=== PATIENT | male | born 1940 | race Caucasian/White ===

== ENCOUNTER 2018-03-12 15:55 | Inpatient (IN) | payer MEDICARE, BC ==
[~2018-03-12] VITALS: Ht 195.6 cm; Wt 200.0 kg
[~2018-03-12 15:55] MED LIST: CALCIUM CARBON500 M3 PO; CO Q10100 MG PO; COUMADIN 10MG T10 M1 PO; COUMADIN 5 MG TA5 M1 PO; COUMADIN7.5 MG PO; DEPO-TESTO200 MG/1 M IM; DIGOXIN; FIRST-LANSO3 MG/1 ML SUBQ; FOLIC ACID 40400 MCG PO; FOLIC ACID XTR0.8 MG PO; FOLIC ACID0.8 MG PO; FUROSEMIDE 80 M80 M1 PO; HUMALOG100 UNIT/1; HUMALOG100 UNIT/1 SUBQ; K-DUR 20 MEQ T20 MEQ PO; KEFLEX500 MG PO; KLOR-CON 10 ER10 MEQ PO; LANOXIN 0.120.125 M3 PO; LANOXIN 0.250.25 MG PO; LANTUS SUBQ; LANTUSSOLASTAR SUBQ; LASIX 40 MG TAB40 M1 PO; LIPITOR40 MG PO; LOPRESSOR; LOPRESSOR 50 MG50 M1 PO; MECLIZINE HCL25 M1 PO; METANX CAPSULE1 EACH PO; METANX TABLET1 EAC1 PO; METHOTREXATE; METOPROLOL TART25 MG PO; MIRALAX17 GM PO; NSAID; REMICADE 1100 MG/VIA IV; RESTORIL30 MG PO; TOPROL XL50 MG PO; VITAMIN D3100 GM PO; VITAMIN D31000 UNI2 PO; VYTORIN; WARFARIN; XARELTO10 MG PO; ZOFRAN ODT4 MG PO; [UNRECOGNIZED DRUG - OTHER] PO; [UNRECOGNIZED DRUG - REMARK]; [UNRECOGNIZED DRUG - REMARK]
[2018-03-12 16:04] VITALS: BP 192/55
[2018-03-12 16:44] LABS: ABSOLUTE BASOPHILS 0.1 thou/uL (0.0-0.2); ABSOLUTE EOSINOPHILS 0.1 thou/uL (0.0-0.7); ABSOLUTE LYMPHOCYTES 1.5 thou/uL (0.8-5.3); ABSOLUTE NEUTROPHILS 6.7 thou/uL (1.6-8.1); BASOPHILS 1.1 %; EOSINOPHILS 1.4 %; HEMATOCRIT 40.6 % (42.0-52.0); HEMOGLOBIN 13.5 gm/dL (14.0-18.0); LYMPHOCYTES 15.9 %; MCH 31.9 pg (26.0-34.0); MCHC 33.3 g/dL (28.0-37.0); MCV 95.7 fL (80.0-100.0); MPV 9.4 fl. (7.2-11.1); NUCLEATED RBCS 0 /100WBC; PLATELET COUNT* 223 thou/uL (150-400); POLYS 70.6 %; RBC 4.24 mil/uL (4.50-6.00); RDW-CV 15.4 % (10.5-14.5); WBC 9.5 thou/uL (4.0-11.0)
[2018-03-12] MEDS ORDERED: KEPPRA 500 MG500 M1 PO (16:48)
[2018-03-12] MEDS ORDERED: HUMALOG100 UNIT/1 SUBQ (16:48)
[2018-03-12 16:54] LABS: APTT 23.2 Seconds (25.0-31.3); INR 1.2; PROTIME 11.8 Seconds (9.20-11.50)
[2018-03-12 17:00] LABS: CALCIUM 8.6 mg/dL (8.5-10.1); CREATININE 1.1 mg/dL (0.6-1.3)
[2018-03-12 17:01] LABS: POTASSIUM 5.1 mmol/L (3.5-5.1)
[2018-03-12 17:11] LABS: ALBUMIN 3.1 g/dL (3.4-5.0); TOTAL BILIRUBIN 0.6 mg/dL (<0.1-1.0); TOTAL PROTEIN 7.1 g/dL (6.4-8.2); TROPONIN-I LEVEL 0.07 ng/mL (<0.06)
[2018-03-12 18:44] VITALS: BP 117/78
[2018-03-12 19:20] VITALS: BP 167/55
--- NOTE | 2018-03-12 19:53 | NUR ---
PATIENT ARRIVED TO THE ROOM THIS EVENING AT 1910. PATIENT IS ALERT AND ORIENTED X 4. HE C/O RECENT SOA. PATIENT PLACED ON TELE MONITOR. VS OBTAINED. REPORT GIVEN TO WOOL FLEECE GRADER RN.
[2018-03-12 20:00] VITALS: BP 130/62
[2018-03-12 22:03] LABS: BE -3.9 mmol/L (-2 to +3); HCO3 20.8 mmol/L (22.0-26.0); PCO2 36.7 mmHg (35.0-45.0); PO2 62.1 mmHg (75.0-100.0); pH 7.371 (7.340-7.450)
[2018-03-13] VITALS: BP 166/68
[2018-03-13 04:00] VITALS: BP 169/54
--- NOTE | 2018-03-13 05:02 | NUR ---
PT HISTORY AND ASSESSMENT COMPLETE. A FLUTTER/BRADYCARDIC ON MONITOR. HR OVERNIGHT LOW 30'S TO MID 40'S. PT INCONT OF URINE AT TIMES. AVELINA CARE AND BED CHANGES PRN. FALL PRECAUTIONS IN PLACE INCLUDING BED ALARM. PT EDUCATED NUMOROUS TIMES R/T CALLING OUT FOR ASSISTANCE PRIOR TO GETTING UP. PT DOES NOT FOLLOW INSTRUCTIONS. O2 2L NC. CALL LIGHT IN REACH. BED IN LOWEST POSITION. SLOW TO PROGRESS TOWARDS GOALS.
[2018-03-13 08:00] VITALS: BP 164/68
[2018-03-13 09:59] LABS: ABSOLUTE BASOPHILS 0.1 thou/uL (0.0-0.2); ABSOLUTE EOSINOPHILS 0.1 thou/uL (0.0-0.7); ABSOLUTE NEUTROPHILS 6.9 thou/uL (1.6-8.1); BASOPHILS 0.6 %; EOSINOPHILS 1.1 %; HEMATOCRIT 41.7 % (42.0-52.0); HEMOGLOBIN 13.9 gm/dL (14.0-18.0); LYMPHOCYTES 11.2 %; MCH 31.4 pg (26.0-34.0); MCHC 33.4 g/dL (28.0-37.0); MONOCYTES 11.1 %; MPV 9.1 fl. (7.2-11.1); NUCLEATED RBCS 0 /100WBC; PLATELET COUNT* 192 thou/uL (150-400); RBC 4.44 mil/uL (4.50-6.00); WBC 9.1 thou/uL (4.0-11.0)
[2018-03-13 10:12] LABS: ALBUMIN 2.9 g/dL (3.4-5.0); CALCIUM 8.4 mg/dL (8.5-10.1); CREATININE 1.2 mg/dL (0.6-1.3); TOTAL BILIRUBIN 0.7 mg/dL (<0.1-1.0); TOTAL PROTEIN 7.1 g/dL (6.4-8.2)
[2018-03-13 10:14] LABS: POTASSIUM 3.6 mmol/L (3.5-5.1)
[2018-03-13 12:00] VITALS: BP 174/78
--- NOTE | 2018-03-13 14:47 | EKG ---
[place] [address] ELECTROCARDIOGRAM REPORT Name: LUCY KEE Room: [address] IN .R.#: [id number] Admission: 03/12/18 Attend Phys: Lyndon Pope, Discharge: Date of : 40 Report #: [id number] THIS REPORT FOR: //name// [facility] ED Test Date: 2018-03-12 Test Time: 16:22:06 Pat Name: LUCY KEE Department: Room: Gender: M Boiler Inspector: : 1940 Requested By: [place] Order Number: [id number] MD: Jonathan Ricci Measurements Intervals [place] Rate: 40 P: AL: QRS: 68 QRSD: 99 T: 47 QT: 597 QTc: 487 Interpretive Statements Junctional rhythm Low voltage, extremity leads Consider anterior infarct Compared to ECG 05/06/2017 16:24:55 Junctional rhythm now present Atrial fibrillation no longer present Electronically Signed On 03-13-2018 14:47:22 CDT by Jonathan Ricci [email or web address] <ELECTRONICALLY SIGNED> By: Jonathan Ricci MD, [facility] 03/13/18 1447 1622 162 Jonathan Ricci MD, [facility] /EPI
[2018-03-13 16:00] VITALS: BP 172/55
--- NOTE | 2018-03-13 16:18 | CON ---
[address] [address] CONSULTATION Name: CHILANGOLUCY Pattie Room: [address] IN M.R.#: [id number] Admission: 03/12/18 Attend Phys: Lyndon Pope, Discharge: Date of : 40 Report #: [id number] THIS REPORT FOR: //name// CC: ROSENDO Abraham DATE OF SERVICE: 03/13/2018 PRIMARY CARE PHYSICIAN: Rosendo Abraham MD. HISTORY OF PRESENT ILLNESS: The patient is a 77-year-old morbidly obese single white male who was brought to the Emergency Room yesterday with weakness. The history is obtained from the patient as well as old records. There are no family members available. The patient has a long history of atrial fibrillation. He previously was cared for by here at [facility] in the and was cardioverted. He was on sotalol and digoxin. He has been chronically anticoagulated. The patient has had recurrent atrial fibrillation and has been cardioverted in the past. He was seen by Dr. Goldstein back in 04/2017. At that time, he is felt to be in permanent atrial fibrillation, anticoagulated with Xarelto. He has had no bleeding problems. He apparently had had a heart catheterization in the past showing no significant coronary artery disease. His last echocardiogram in 04/2017 showed an ejection fraction of 55% with aortic sclerosis, mild mitral regurgitation. The patient was brought to the Emergency Room yesterday afternoon. He apparently been weak and lightheaded. He has also had increasing edema. After his admission, he was noted to have slow rates of atrial fibrillation. I was asked to see him for further evaluation. He denies a history of myocardial infarction or chest pain. He has been short of breath and complains of fatigue. He has chronic edema. He notes occasional irregular heartbeat, but has had no syncope. PAST MEDICAL HISTORY: significant for tonsillectomy, knee surgery, cataract extraction, diabetes. MEDICATIONS: On admission consisted of insulin, Keppra, Lipitor, Lasix, Xarelto, metoprolol. ALLERGIES: He has no known drug allergies. FAMILY HISTORY: His brother had a stroke. SOCIAL HISTORY: He is , lives with girlfriend in [place], [place]. 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 Quit smoking years ago. No alcohol abuse. REVIEW OF SYSTEMS: He is 6 feet 5 inches and weighs close to 400 pounds. He states he has had a TIA in the past. He has sleep apnea, uses [place] [address] CONSULTATION Name: LUCY KEE Room: [address] IN M.R.#: [id number] Admission: 03/12/18 Attend Phys: Lyndon Pope, Discharge: Date of : 40 Report #: [id number] of asthma. No history of bleeding, peptic ulcer disease, liver disease, kidney disease. He has had prostate cancer in the past. No psychiatric illness. PHYSICAL EXAMINATION: GENERAL: Revealed extremely large male, lying in bed, appeared in no acute distress. VITAL SIGNS: He had a blood pressure of 140/70, pulse is 60 and irregular. He is afebrile. HEENT: He is anicteric. Conjunctivae appear pink. Mucous membranes are moist. NECK: Veins difficult to assess due to obesity. CHEST: Clear to auscultation. CARDIOVASCULAR: Irregular rhythm, grade 2 systolic ejection murmur. ABDOMEN: Obese. EXTREMITIES: He has edema below the mid tibial area. SKIN: Dry, warm. NEUROLOGIC: Nonfocal. LABORATORY DATA: His ECG on admission showed atrial fibrillation with a slow response. He had occasional PVC, had a 5.5 second pause. His additional workup, he had a CT scan of the head without contrast that showed microangiopathy findings, previous infarction in the left frontal lobe. No change from 2017. Chest x-ray yesterday showed cardiomegaly, mild pulmonary edema. Sodium 142, creatinine 1.1, glucose 136, troponin 0.07. BNP 827. His white blood cell count 9.5, hemoglobin 13. IMPRESSION AND RECOMMENDATIONS: 1. Atrial fibrillation. The patient noted to have long pauses. I would recommend discontinuing beta marco a. If they persist, I will consider pacemaker. The patient has been on Xarelto for anticoagulation. 2. History of stroke. Suspect embolic event from atrial fibrillation. I would continue Xarelto. 3. Diabetes. 4. Hypertension. The patient is on a beta marco a. 5. Hyperlipidemia. The patient is on a statin drug. 6. Edema. Suspect venous stasis. The patient on diuretics. 7. Morbid obesity. 8. Sleep apnea. 9. History of prostate cancer. <ELECTRONICALLY SIGNED> By: Jonathan Ricci MD, FACC 03/13/18 1618 0927 [id number] Ricci MD, FACC /nt
--- NOTE | 2018-03-13 18:34 | NUR ---
PATIENT RESTING IN BED. ORDERED BEDREST. PATIENT USING URINAL WITH SOME SUCCESS AND MORE SPILLING, DIFFICULT TO ASSESS ACURATE URINE OUTPUT. PATINET NOTES TO HAVE REDNESS TO RIGHT PANUS, ANTI FUNGAL POWDER ORDERED AND PATINET ASSISTED WITH CLEANSING. PAITNET HAD ECO AND EEG COMPLETED TODAY. VITAL SIGNS STABLE AND PATINET PARTICIPATING IN PLAN OF CARE. HOURLY ROUNDING COMPLETED FOR PATIENT SAFETY.
[2018-03-13 18:40] LABS: BE 0.5 mmol/L (-2 to +3); HCO3 24.5 mmol/L (22.0-26.0); PCO2 37.4 mmHg (35.0-45.0); PO2 79.6 mmHg (75.0-100.0); pH 7.434 (7.340-7.450)
[2018-03-13 20:00] VITALS: BP 150/54
[2018-03-13 21:14] LABS: URINE BILIRUBIN NEGATIVE (Negative); URINE BLOOD NEGATIVE (Negative); URINE CLARITY CLEAR; URINE COLOR STRAW; URINE GLUCOSE-RANDOM NEGATIVE (Negative); URINE KETONES NEGATIVE (Negative); URINE LEUKOCYTES-REFLEX NEGATIVE (Negative); URINE NITRITE-REFLEX NEGATIVE (Negative); URINE PROTEIN NEGATIVE (Negative); URINE SPECIFIC GRAVITY 1.015 (1.005-1.030); URINE UROBILINOGEN 0.2 E.U./dl (0.2-1.0)
[2018-03-14 00:42] VITALS: BP 154/73
[2018-03-14 04:20] VITALS: BP 111/72
[2018-03-14 05:11] LABS: CALCIUM 8.4 mg/dL (8.5-10.1); CREATININE 1.1 mg/dL (0.6-1.3); POTASSIUM 3.7 mmol/L (3.5-5.1)
--- NOTE | 2018-03-14 05:37 | NUR ---
PT CARE ASSUMED AFTER REPORT. ASSESSMENT COMPLETE. AFIB/AFLUTTER/BRADYCARDIA WITH 5 TO 7 SECOND PAUSES ON MONITOR. O2 2L NC. DENIES PAIN. FALL PRECAUTIONS IN PLACE INCLUDING BED ALARM. CALL LIGHT IN REACH. BED IN LOWEST POSITION. SLOW TO PROGRESS TOWARDS GOALS.
[2018-03-14 08:00] VITALS: BP 152/65
--- NOTE | 2018-03-14 09:47 | NUR ---
Nutrition: consult received for wound. No pressure wound noted. Pt with stasis dermatitis of LE and redness of panus.
--- NOTE | 2018-03-14 13:16 | 2DMMODE ---
[place] [address] 2 D/M-MODE ECHOCARDIOGRAM Name: LUCY KEE Room: [address] IN [facility]#: [id number] Admission: 03/12/18 Attend Phys: Lyndon Nolan Discharge: Date of : 40 Date of Service: 03/14/18 1316 Report #: [id number] THIS REPORT FOR: //name// APPROVED REPORT Study performed: 03/14/2018 11:02:05 EXAM: Comprehensive 2D, Doppler, and color-flow Echocardiogram Patient Location: In-Patient Room #: [facility] Status: routine BSA: 3.00 HR: 64 bpm BP: 111/72 mmHg Rhythm: Atrial Fibrillation Other Information Study Quality: Good Indications Congestive Heart Failure Atrial Fibrillation Echo Enhancing Agent Indication: Endocardial border delineation Agent(s) / Amount(s) Used: Optison 3 cc 2D Dimensions LVEF(%): 62.97 (>50%) IVSd: 13.27 (7-11mm) LVOT Diam: 20.10 (18-24mm) LVDd: 48.79 mm PWd: 13.57 (7-11mm) Ascending Ao: 33.18 (22-36mm) LVDs: 32.13 (25-40mm) Aortic Root: 35.85 mm Oro's LVEF: 62.97 % Volumes Left Atrial Volume (Systole) LA ESV Index: 33.90 mL/m2 Aortic Valve AoV Peak Lasha.: 1.44 m/s AO Peak Gr.: 8.25 mmHg LVOT Max P.92 mmHg AO Mean Gr.: 4.87 mmHg LVOT Mean P.58 mmHg LVOT Max V: 1.32 m/[place] [address] 2 D/M-MODE ECHOCARDIOGRAM Name: LUCY KEE Room: [address] IN .R.#: [id number] Admission: 03/12/18 Attend Phys: Lyndon Nolan Discharge: Date of : 40 Date of Service: 03/14/18 1316 Report #: [id number] AO V2 VTI: 26.65 cm LVOT Mean V: 0.87 m/s CRISSY (VTI): 3.11 cm2 LVOT V1 VTI: 26.09 cm TDI Medial E' Lasha.: 0.12 m/s Lateral E' Lasha.: 0.14 m/s Pulmonary Valve PV Peak Lasha.: 1.28 m/s PV Peak Gr.: 6.56 mmHg Tricuspid Valve TR Peak Gr.: 28.27 mmHg RVSP: 33.00 mmHg Left Ventricle The left ventricle is normal size. There is normal LV segmental wall motion. Mild concentric left ventricular hypertrophy. Left ventricular systolic function is normal. LVEF is 55-60%. This study is not technically sufficient to allow evaluation of the LV diastolic function due to atrial fibrillation. Right Ventricle The right ventricle is normal size. The right ventricular systolic function is normal. Atria Left atrium is mildly dilated. Right atrium is mildly dilated. Aortic Valve Mild aortic valve sclerosis. Trace aortic regurgitation. There is no aortic valvular stenosis. Mitral Valve The mitral valve is normal in structure. Trace mitral regurgitation. No evidence of mitral valve stenosis. Tricuspid Valve The tricuspid valve is normal in structure. Trace tricuspid regurgitation. The RVSP is 30-35 mmHg. Pulmonic Valve The pulmonary valve is normal in structure. There is no pulmonic valvular regurgitation. Great Vessels The aortic root is normal in size. IVC is [place] [address] 2 D/M-MODE ECHOCARDIOGRAM Name: LUCY KEE Room: [address]#: [id number] Admission: 03/12/18 Attend Phys: Lyndon Nolan Discharge: Date of : 40 Date of Service: 03/14/18 1316 Report #: [id number] collapses with >50% inspiration Pericardium There is no pericardial effusion. <Conclusion> The left ventricle is normal size. Mild concentric left ventricular hypertrophy. Left ventricular systolic function is normal. LVEF is 55-60%. Left atrium is mildly dilated. Right atrium is mildly dilated. Mild aortic valve sclerosis. Trace aortic regurgitation. There is no aortic valvular stenosis. Trace tricuspid regurgitation. The RVSP is 30-35 mmHg. <ELECTRONICALLY SIGNED> By: Shan Goldstein MD, FACC 03/14/18 1316 15 131 Shan Goldstein MD, FACC /INF
--- NOTE | 2018-03-14 14:01 | NUR ---
Pt out of room, CM to f/u later
[2018-03-14 20:00] VITALS: BP 146/56
[2018-03-15] VITALS: BP 157/79
--- NOTE | 2018-03-15 03:49 | NUR ---
ASSUMED PT CARE AT 1930. ASSESSMENT COMPLETED CHARTED. PT HAS C/O PAIN WHEN LAYING DOWN OR TRYING TO TURN HIMSELF. PT WAS SLEEPING WHEN NOTED LAST. ABLE TO MAKE NEEDS KNOWN, CALL LIGHT WITHIN REACH. ON 2 L OF O2, IV IN RIGHT HAND AND LEFT FOREARM SL. WILL CONTINUE TO MONITOR.
[2018-03-15 04:00] VITALS: BP 95/74
[2018-03-15 08:00] VITALS: BP 170/63
--- NOTE | 2018-03-15 10:24 | NUR ---
Pt is A&O. Resides at home alone, though he did mention a , and nurse reported that Pt lives at home with an ex girlfriend. Pt admitted that he does have an ex . Pt stated that his dtr cooks and cleans for him. Pt states that his neighbor drives him to run errands and to appts. Pt independent with iADLs. Pt wears home o2 at [facility] and a cpap, Pt does not know who provides either. Pt uses a walker for mobility. Hx of VNA . Hx of skilled at [facility]. Pacer placed yesterday. PT//OT evals to be completed today, Pt stated that he may need SNF at [place], pending therapy evals. Following.
[2018-03-15 11:30] VITALS: BP 151/50
[2018-03-15 16:00] VITALS: BP 169/58
--- NOTE | 2018-03-15 16:13 | NUR ---
WOUND CARE NOTE: CONSULT RECEIVED FOR STASIS DERMATITIS. PATIENT PRESENTS WITH WHAT APPEARS TO BE CHRONIC HEMOSIDERIN STAINING WITH LYMPHEDEMA AND CHRONIC SKIN THICKENING/LICHENIFICATION. NO OPEN WOUNDS NOTED. PATIENT STATES HE SEES DR. CROWDER FOR HIS TOENAILS. PALPABLE PEDAL PULSES BILATERALLY. MEASURED FOR SIZE G TUBIGRIP. PLACED DOUBLE LAYER TUBIGRIP TO BILATERAL LEGS. PATIENT'S FRIEND IN ROOM STATES HE HAS SEVERAL COMPRESSION STYLE GARMETS AT HOME, BUT CANNOT GET THEM ON. SPOKE WITH BOTH ON THE NEED TO KEEP LEGS ELEVATED, COMMUNICATED UNDERSTANDING. EDUCATED ABOUT IMPORTANCE OF USING COMPRESSION TO PREVENT ANY ULCERATIONS, COMMUNICATED UNDERSTANDING. LEFT CARD FOR OUTPATIENT LYMPHEDEMA THERAPY IN CASE THEY DESIRE TO FOLLOW UP TO DETERMINE OTHER OPTIONS FOR COMPRESSION. RECOMMEND ELEVATE BLE FOLLOW UP WITH LYMPHEDEMA CLINIC. WILL SIGN OFF AT THIS TIME, PLEASE RECONSULT IF NEEDED.
[2018-03-15 20:00] VITALS: BP 204/95
[2018-03-16] VITALS (7 sets, daily range): BP systolic 123–178; BP diastolic 52–86
--- NOTE | 2018-03-16 05:15 | NUR ---
RECEIVED CARE OF PATIENT AT 0300 FROM DAVID COHN. GRASSLAND CONSERVATIONIST CONTINUES TO TRACE V-PACED RHYTHM. PATIENT RESTING COMFORTABLY AT THIS TIME. PATIENT CONTINUES TO BE REPOSITIONED Q2H AND AVELINA CARE PROVIDED WITH INCONTINENCE CHECKS. PATIENT DENIES NEEDS AT THIS TIME. CALL LIGHT WITHIN REACH
--- NOTE | 2018-03-16 11:19 | NUR ---
Pt decided that he wants to dc to home with [facility]. Faxed orders. Family to transport
--- NOTE | 2018-03-16 12:20 | EEG ---
[address] [address] EEG STUDY REPORT Name: CHILANGOLUCY Pattie Room: [address] IN M.R.#: [id number] Admission: 03/12/18 Attend Phys: Lyndon Pope, Discharge: Date of : 40 Report #: [id number] THIS REPORT FOR: //name// CC: Lyndon Abraham DATE OF SERVICE: 03/13/2018 DATE OF EE03/13/2018. This patient is being evaluated for weakness and altered mental status. EEG was done by placing the electrode by standard 10-20 system of electrode placement. Both referential and sequential montages were used for recording. Background activity in this patient's EEG is about 8-9 Hz and 30 microvolt. It is slower on many places and that is associated with probable drowsiness. Photic stimulation was unremarkable. Throughout the record, no active epileptiform activity was noticed. IMPRESSION: This is an abnormal EEG because it is slow and poorly formed. That is a nonspecific abnormality which can occur with encephalopathy, effect of psychotropic medication, dementia, etc. Clinical correlation is recommended. <ELECTRONICALLY SIGNED> By: Jose Alejandro Wells MD 03/16/18 1220 1159 1221Pguillermina Wells MD /nt
--- NOTE | 2018-03-16 12:20 | CON ---
[address] [address] CONSULTATION Name: LUCY KEE Room: [address] IN M.R.#: [id number] Admission: 03/12/18 Attend Phys: Lyndon Pope, Discharge: Date of : 40 Report #: [id number] THIS REPORT FOR: //name// CC: Lyndon Robbins Leigh DATE OF SERVICE: 03/13/2018 HISTORY OF PRESENT ILLNESS: This is a 77-year-old male patient who will not provide any reliable history. He will not like to have any workup done. He was admitted with repeated falls, which he attributes to low blood sugar. His blood sugar has been low. He said he had some weakness of the legs at that time, but since then, it has become better. He does not know which leg his weakness was. Record indicated it was also associated with some speech difficulty. He denies all of those. He wants to go home. REVIEW OF SYSTEMS: Indicated that the family has indicated that he has been weak. He has been confused. He attributes that to his low blood sugar. He has a previous history of back problem. He indicated it is because of the sciatica. He has severe edema of the lower extremities, is not clear how long it is going on. He has a history of hyperlipidemia. He has a history of neuropathy. He has a history of prior cardioversion. He is on Xarelto. He has a history of atrial fibrillation. He had MRIs of the spine. He does not think he had an MRI of the brain. There is some history of seizures. He will not give me any history in that regard. He had some problem in the retinal artery in the past. This is his relevant 14-point review of system, which he provides. I got his 14-point review of system partly from the record and partly from talking to the patient. The patient is a very reluctant historian because he wants to go home. PAST MEDICAL HISTORY: Negative for stroke according to him. FAMILY HISTORY: Negative for early age stroke. SOCIAL HISTORY: Unavailable. We need to talk to his family and I will continue to try that. He tells me that he does not drink any alcohol or smoke. PHYSICAL EXAMINATION: Indicate he is alert. He is responsive. He can tell me what month and what date it is. He knows he is in [place]. He wants to go home. His memory and fund of knowledge is diminished. Cranial nerve examination 2-12 was attempted. He did not cooperate at all, so I cannot tell anything about it. He moves all 4 extremities. He is weak in the lower extremity, but it looks symmetrical. He does have massive edema, but he says it is old. He can still tell the position sense. His reflexes are intact. He does not have any cerebellar sign. He did not cooperate with the fundus examination. His pulse is not palpable in the lower extremities, but he has an edema there. He is a very well developed individual who does not have any [address] [address] CONSULTATION Name: LUCY KEE Room: [address] [id number] Admission: 03/12/18 Attend Phys: Lyndon Pope, Discharge: Date of : 40 Report #: [id number] dysmorphic features of eyes, ears and face. His cardiac examination is positive for bradycardia. No respiratory difficulty or rhonchi was noticed. Vital signs indicate that pulse persistently in the 40s, temperature is 98, respirations 19, blood pressure is 169/84. LABORATORY DATA: Indicate a white count of 9.5. His vitamin B12 at one time was normal. IMAGING STUDIES: Indicate that his CT scan showed severe periventricular changes with possible old infarct. IMPRESSION: This patient is very uncooperative and is very difficult to tell what is happening. It is possible that he had a stroke. His CT scan is pretty significantly abnormal, but the changes look chronic. We will try to do an MRI and an EEG as the first testing to see why his confusion is there. I do not know whether he will cooperate or not. I will try to continue to reach the family and see if we can do something about that. His further workup will depend upon the outcome of these testing. The patient is on anticoagulation. This happened 3 days ago, so I do not believe any intervention can be done even if he had a stroke. I do not know if he will allow the testing or not, but we will try and Dr. Uribe will follow up this patient with you from tomorrow. Thank you very much for this referral. <ELECTRONICALLY SIGNED> By: Jose Alejandro Wells MD 03/16/18 1220 0953 1238Jose Alejandro Wells MD /vivek
--- NOTE | 2018-03-16 12:27 | NUR ---
PT CARE ASSUMED AT 0700. ASSESSMENT COMPLETED. PT WANTING TO GO HOME TODAY. TRAFFIC WAREHOUSE SUPERVISOR X2 GOT PT TO CHAIR, PT MAX ASSIST, CAN NOT USE LEFT ARM TO HELP PUSH HIMSELF UP. PT VERY UNSTEADY. DR BROWNLEE CONSIDERING DISCHARGING PT TO HOME. SOCIAL WORK ASKED TO SPEAK TO PT ABOUT DISCHARGE PLAN, PT ADAMANT HE WANTS TO GO HOME. WILL HAVE PHYSICAL THERAPY SEE PT TO EVALUATE.
--- NOTE | 2018-03-16 14:23 | CON ---
[address] [address] CONSULTATION Name: LUCY KEE Room: [address] IN M.R.#: [id number] Admission: 03/12/18 Attend Phys: Lyndon Pope, Discharge: Date of : 40 Report #: [id number] THIS REPORT FOR: //name// CC: Lyndon Abraham HISTORY OF PRESENT ILLNESS: The patient is a 77-year-old male patient who was slightly confused this morning during my evaluation, although he provides part of the history. His daughter is at the bedside. He has history of long-term AFib and he has a CPAP machine at home that he uses every night. Also, per the family member, he has also oxygen concentrator where the oxygen was bled in through his CPAP at night. He had permanent atrial fibrillation. He is on Xarelto. His last echocardiogram, EF was 55%. He was admitted because of being weak, lightheaded and increasing lower extremity edema; however, he was found to be in AFib with slow rates and the plan was to have the patient have a pacemaker placed today. He was n.p.o. during my evaluation. Per the family, he uses CPAP every single night. The patient was on minimal amount of oxygen. He has no cough, no shortness of breath, no wheezes, but he was confused and he did not provide appropriate history. PAST SURGICAL HISTORY: Tonsillectomy, knee surgery, cataract extraction, diabetes. HOME MEDICATIONS: Insulin, Lipitor, Lasix, Xarelto, metoprolol. ALLERGIES: No known drug allergies. FAMILY HISTORY: Stroke. SOCIAL HISTORY: Lives with his significant other, does not drink alcohol. Does not abuse drugs, although he has history of smoking in the past. REVIEW OF SYSTEMS: Reviewed with the patient possible sleep apnea with CPAP on oxygen at home, some lower extremity edema. The rest of the review of system is negative. Specifically, no cough or sputum production or wheezes. PHYSICAL EXAMINATION: VITAL SIGNS: On examination, he is on 2 liters oxygen with saturation more than 90%, blood pressure 110/72, pulse rate of 19, temperature 36.7. GENERAL: Obese gentleman, awake, confused. HEENT: Head is normocephalic, atraumatic. Pupils are reactive to light. Oral cavity, Mallampati of 3. External ear looks healthy and normal. NECK: Supple and thick. Trachea is central. CHEST: Diminished air movement bilaterally. No wheezing, no crackles. No tenderness. HEART: S1, S2. No definite murmur. Distant sounds. ABDOMEN: Obese, soft, lax, [place] [address] CONSULTATION Name: LUCY KEE Room: [address] IN M.R.#: [id number] Admission: 03/12/18 Attend Phys: Lyndon Pope, Discharge: Date of : 40 Report #: [id number] EXTREMITIES: Trace edema, no calf tenderness. NEUROLOGIC: Moving 4 extremities spontaneously. No focal weakness. Cranial nerves grossly normal. Neurologically somewhat confused. SKIN: Normal for age and race. No rash. LABORATORY DATA: Venous Doppler ultrasound negative for DVT. His chest x-ray showed cardiomegaly with signs of vascular congestion. His CT head was showing chronic changes, but no acute abnormalities. IMPRESSION: 1. Acute hypoxic respiratory failure requiring minimal amount of oxygen. 2. Obesity. 3. Obstructive sleep apnea. 4. Bradycardia. 5. Congestive heart failure exacerbation. I suspect the patient's hypoxia is related to his congestive heart failure. I agree with the diuresis. Plan by Cardiology to place a pacemaker was noted, likely the CHF exacerbation was related to the bradycardia as a complication of his AFib, unlikely that this is a thromboembolic phenomenon given the fact that he is on chronic anticoagulation. I did discuss with the family, they will bring the patient's CPAP tonight and he will use it. Mostly, he will require some oxygen since his baseline is a CPAP with oxygen. We will follow along with you. I will defer diuresis to Cardiology Service. Thank you for the consult. Discussed with the patient and his family. <ELECTRONICALLY SIGNED> By: Radha Tinoco MD 03/16/18 1423 1245 1809Marino Payne MD /nt
--- NOTE | 2018-03-16 17:33 | NUR ---
PAGED DR BROWNLEE REGARDING PT GLUCOSE
[2018-03-17 00:11] VITALS: BP 133/69
[2018-03-17 03:43] VITALS: BP 128/72
--- NOTE | 2018-03-17 06:43 | NUR ---
PATIENT REMAINS CONFUSED AT TIMES. BUT CLEARS UP AT OTHER TIMES. WANTS TO GO HOME WITH HH THIS AM. WAS TOLD ORDERS ARE READY TO DISCHARGE THIS AT. BED ALARM ON SEVERAL ATTEMPTS TO GET UP. NON-COMPLIANT WITH SLING. WILL CONT. WITH PLAN OF CARE AT THIS TIME
[2018-03-17 08:00] VITALS: BP 135/65
--- NOTE | 2018-03-17 11:48 | NUR ---
Pt has agreed to go to skilled. [facility] is able to accept Pt. Faxed dc orders. Chart copied. Nurse report number provided. Awaiting call back from Sweetie at [facility] regarding last picker time. Dtr in room and aware of disposition.
[2018-03-17 12:07] VITALS: BP 154/69
--- NOTE | 2018-03-17 15:01 | NUR ---
PT DISCHARGED VIA STRETCHER BY EMS. ALL BELONGINGS SENT WITH PT. DAUGHTER AT BEDSIDE. REPORT CALLED.
--- NOTE | 2018-03-20 09:16 | CARD ---
[address] [address] CARDIAC CATH REPORT Name: LUCY KEE Pattie Room: [address]#: [id number] Admission: 03/12/18 Attend Phys: Lyndon Pope, Discharge: 03/17/18 Date of : 40 Report #: [id number] THIS REPORT FOR: //name// APPROVED REPORT Study performed: 03/14/2018 12:28:41 Patient Status: In-Patient Room #: 214 Event Personnel: Shan Goldstein Talking Books Library Clerk, Marimar Boo Hintermaier, Elena RN Landscape Architect And Planner, Ingrid Shetty RN Landscape Architect And Planner, Katia Rose RN Monitor Exam: Insertion of Single Chamber Permanent Pacemaker Indications: Sick Sinus Syndrome/Tachy Mark Syndrome The patient is a 77 year-old male with a history of Atrial Fibrillation with a slow ventricular response rate. Intraoperative Conscious Sedation Sedation start time: 13:34 Case end Time: 14:16 Fentanyl 50 mcg Versed 2 mg Implanted Devices: Biotronik Eluna 8 SRT ProMRI, model #851710, serial #[id number] Biotronik Solia S 60, model #301703, [place] [id number] Procedure After informed consent was obtained the patient was brought to the interventional radiology lab. The area of the left chest was prepped and draped in sterile fashion. Local anesthesia was achieved with 1% lidocaine. Next after an initial incision was made a pacemaker pocket was formed over the left pectoralis muscle using electrocautery and blunt dissection. The left subclavian vein was then accessed utilizing a micropuncture kit. Ultimately a safety J guidewire was advanced to the right atrium under fluoroscopic guidance. A 7 Cymro tear-away introducer was advanced over the guidewire. The dilator and guidewire were removed and a right ventricular lead advanced to a secure position within the right ventricular apex under fluoroscopic guidance. The lead was actively fixed. Thresholds were checked and deemed to be satisfactory. Adequate sensing was assured. There was no diaphragmatic stimulation at maximum output. The tear-away introducer was removed. The lead was then secured within the pocket using the designated cuffs and interrupted stitches of 2-0 silk suture after adequate slack was assured. [place] [address] CARDIAC CATH REPORT Name: CHILANGOLUCY Pattie Room: [address]#: [id number] Admission: 03/12/18 Attend Phys: Lyndon Pope, Discharge: 03/17/18 Date of : 40 Report #: [id number] antibiotic solution. A single-chamber pulse generator was attached to the ventricular lead. The redundant lead and pulse generator were then placed within the device pocket. The deep tissue was closed with interrupted stitches of 2-0 Vicryl. The skin incision was then closed with a single subcuticular stitch of 4-0 Vicryl. Several Steri-Strips were placed across the incision. A sterile Telfa dressing was then covered with a Tegaderm. The patient tolerated procedure well without complication. Complications The patient tolerated the procedure well and there were no complications associated with the procedure. Findings The sensed R-wave was 8.50 mV. RV pacing threshold 0.4 V at 0.40 ms. RV pacing impedance 682 ohms. Mode VVI/CLS. Lower rate 60 beats per minute. Upper tracking rate 120 bpm. Conclusion 1. Successful single-chamber pacemaker placement for atrial for ablation with slow ventricular response rate. Recommendations 1. Follow-up site check in one week. <ELECTRONICALLY SIGNED> By: Shan Goldstein MD, FACC 03/20/18914 4 4Miclucretia Goldstein MD, FACC /INF
== END 2018-03-17 14:34 | DRG 242 ==
LOC: M.ERS 15:55 → M.2W 17:54 → M.TBA-ER 17:54 → M.2W 19:12
PROVIDERS: Family Medicine; Internal Medicine Cardiovascular Disease; ADMIT Family Medicine
PROC: 0JH604Z Insertion of Pacemaker, Single Chamber into Chest Subcutaneous Tissue and Fascia, Open Approach (ICD-10-PCS; principal; 2018-03-12)
PROC: 02HK3JZ Insertion of Pacemaker Lead into Right Ventricle, Percutaneous Approach (ICD-10-PCS; 2018-03-12)
DX: I49.5 Sick sinus syndrome (principal); G93.40 Encephalopathy, unspecified; J96.21 Acute and chronic respiratory failure with hypoxia; I50.33 Acute on chronic diastolic (congestive) heart failure; Z68.43 Body mass index [BMI] 50.0-59.9, adult; I11.0 Hypertensive heart disease with heart failure; E66.01 Morbid (severe) obesity due to excess calories; E78.5 Hyperlipidemia, unspecified; E11.42 Type 2 diabetes mellitus with diabetic polyneuropathy; I48.91 Unspecified atrial fibrillation; I87.8 Other specified disorders of veins; W19.XXXA Unspecified fall, initial encounter; G47.33 Obstructive sleep apnea (adult) (pediatric); E11.649 Type 2 diabetes mellitus with hypoglycemia without coma; I35.8 Other nonrheumatic aortic valve disorders; Z79.4 Long term (current) use of insulin; Z79.899 Other long term (current) drug therapy; Z87.891 Personal history of nicotine dependence; Y93.89 Activity, other specified; Y92.89 Other specified places as the place of occurrence of the external cause; Y99.8 Other external cause status; Z79.01 Long term (current) use of anticoagulants; Z98.49 Cataract extraction status, unspecified eye; Z82.3 Family history of stroke; Z86.73 Personal history of transient ischemic attack (TIA), and cerebral infarction without residual deficits; Z85.46 Personal history of malignant neoplasm of prostate

== ENCOUNTER 2019-03-19 12:30 | Inpatient (IN) | payer MEDICARE, BC ==
[~2019-03-19] VITALS: Ht 195.6 cm; Wt 171.5 kg
--- NOTE | ~2019-03-19 | EEG ---
[address] [address] EEG STUDY REPORT Name: LUCY KEE Room: [address] IN M.R.#: [id number] Admission: 03/19/19 Attend Phys: Warren Francis Discharge: 03/22/19 Date of : 40 Report #: [id number] THIS REPORT FOR: //name// CC: Varun Neal DATE OF SERVICE: 03/22/2019 This patient is being evaluated for altered mental status. EEG was done by placing the electrode by standard 10-20 system of electrode placement. Both referential and sequential montages were used for recording. Background activity in this patient's EEG is about 8-9 Hz and 30-40 microvolt. It is a symmetrical activity. Photic stimulation is unremarkable. The patient became drowsy that is associated with bilateral slowing and vertex sharp waves. Throughout the record, no active epileptiform activity was noticed. IMPRESSION: This is an abnormal EEG because it is disorganized and poorly formed. That is a nonspecific abnormality, which can occur with encephalopathy, effect of psychotropic medication, dementia, etc. Clinical correlation is recommended. By: 1623 [id number] Mao MD /nt
--- NOTE | ~2019-03-19 | CON ---
[facility] [address] [place] [address] CONSULTATION Name: LUCY KEE Room: [address] IN M.R.#: [id number] Admission: 03/19/19 Attend Phys: Warren Francis Discharge: 03/22/19 Date of : 40 Report #: [id number] THIS REPORT FOR: //name// CC: Varun Neal DATE OF SERVICE: 03/22/2019 HISTORY OF PRESENT ILLNESS: This is a 78-year-old male patient who is a poor historian. He keeps telling me that he wants to go home and wants to go home now. He said he had a fall and he did not hit his head. The records were reviewed and they indicate that the patient had some altered mental status. There is some history that he slid out of his bed. He had urinary incontinence associated with it. Apparently, there was some shortness of breath. His memory in general is poor, but it looks like that he is able to live at home with the help of granddaughter and the daughter. It is not clear what his blood sugar runs and I do not think he is noncompliant. REVIEW OF SYSTEMS: Indicate the patient is a long-standing diabetic. It is not sure he takes his blood sugar on a regular basis. He does have a history of peripheral neuropathy. He had some history of retinal problems. He had a prior history of leg injury. He denies any new eye, ENT or cardiac symptoms. He did have some nonspecific respiratory symptoms. He denies any GI symptoms, he did have incontinence with this episode. He is not complaining of any neck pain. He denies any constitutional, dermatological, hematological, psychiatric, throat, or allergic symptoms associated with present symptomatology. PAST MEDICAL HISTORY: Negative for any stroke according to him. FAMILY HISTORY: Negative for any early age stroke. SOCIAL HISTORY: He denies the use of alcohol or tobacco. PHYSICAL EXAMINATION: Indicate that he is alert. He is responsive. He can tell me what month it is. He could not tell me the exact date. He knew what hospital he was in. His memory and fund of knowledge appear significantly diminished, but I do not know what his baseline is. His cranial nerve examination 212 was attempted. Cooperation is poor, but it does appear to be nonfocal. He moves all 4 extremities. He appeared to be weak in all four extremities. His reflexes are absent in the lower extremities. His position sense is either absent or markedly diminished. His tone looks symmetrical. His ygyzso-ec-rplh looks unremarkable. I could not look at the patient's fundus. His pulses are nicely palpable. He has no edema, cyanosis or jaundice. His cardiac examinations indicate a pacemaker there. He does have some scattered rhonchi on both sides. His blood pressure is 128/74, pulse is 82 and temperature is 97.6. [place] [address] CONSULTATION Name: LUCY KEE Room: [address] IN ..#: [id number] Admission: 03/19/19 Attend Phys: Warren Francis Discharge: 03/22/19 Date of : 40 Report #: [id number] LABORATORY DATA: His labs indicate a white count of 4.9. His blood sugar is 294. His head CT scan showed some chronic changes. IMPRESSION: Such poor history is difficult to form an impression in this patient. He also wants to go home. He is pretty adamant about it. I am not sure how much we will be able to hold him here. It looks like he has some baseline dementia or at least mild cognitive impairment. He needs the workup for that. On the basis of that, his living arrangement needs to be determined. It looks like he has intermittent change in mental status. We need to make sure his blood sugar stays okay during that time. I will check an EEG. I am not sure if there was any focal deficit or not associated with this and we will try to get something from the family and at one time, his GFR was 38, but most of the time it stayed okay and he tells me that he had speech difficulty at one time, but none of the other notes have indicated that. I will try to reach the family and decide about the further workup, but we will get an EEG done. By: 0927 [id number] Mao MD /vivek
[~2019-03-19 12:30] MED LIST changes: +KEPPRA 500 MG500 M1 PO; +TOUJEO SOL300 UNIT/1 SUBQ
[2019-03-19 13:12] LABS: ABSOLUTE LYMPHOCYTES 0.5 thou/uL (0.8-5.3); ABSOLUTE MONOCYTES 0.6 thou/uL (0.0-1.2); ABSOLUTE NEUTROPHILS 5.2 thou/uL (1.6-8.1); BASOPHILS 0.4 %; HEMATOCRIT 45.2 % (42.0-52.0); HEMOGLOBIN 14.8 gm/dL (14.0-18.0); LYMPHOCYTES 7.8 %; MCH 30.9 pg (26.0-34.0); MCHC 32.9 g/dL (28.0-37.0); MCV 93.9 fL (80.0-100.0); MONOCYTES 9.9 %; NUCLEATED RBCS 0 /100WBC; PLATELET COUNT* 154 thou/uL (150-400); POLYS 81.9 %; RBC 4.81 mil/uL (4.50-6.00); WBC 6.3 thou/uL (4.0-11.0)
[2019-03-19 13:19] LABS: APTT 27.8 Seconds (25.0-31.3); INR 1.1; PROTIME 11.2 Seconds (9.20-11.50)
[2019-03-19 13:32] LABS: CALCIUM 8.4 mg/dL (8.5-10.1); CREATININE 1.3 mg/dL (0.6-1.3); POTASSIUM 4.4 mmol/L (3.5-5.1)
[2019-03-19 13:46] LABS: TOTAL PROTEIN 7.4 g/dL (6.4-8.2); TROPONIN-I LEVEL 0.1 ng/mL (<0.06)
[2019-03-19] MEDS ORDERED: LOPRESSOR100 M1 PO (13:58)
[2019-03-19] MEDS ORDERED: MIRALAX17 GM PO (13:58)
[2019-03-19] MEDS ORDERED: CO Q-10100 MG PO (13:58)
[2019-03-19] MEDS ORDERED: GLUCOSE4 GM PO (13:59)
[2019-03-19] MEDS ORDERED: COZAAR100 MG PO (13:59)
[2019-03-19 14:06] LABS: URINE BILIRUBIN NEGATIVE (Negative); URINE BLOOD 3+ (Negative); URINE CLARITY CLEAR; URINE COLOR YELLOW; URINE GLUCOSE-RANDOM 2+ (Negative); URINE KETONES 2+ (Negative); URINE LEUKOCYTES-REFLEX NEGATIVE (Negative); URINE NITRITE-REFLEX NEGATIVE (Negative); URINE PROTEIN 1+ (Negative); URINE SPECIFIC GRAVITY 1.025 (1.005-1.030); URINE UROBILINOGEN 0.2 E.U./dl (0.2-1.0)
[2019-03-19 14:23] LABS: HYALINE CASTS 0-3 Few /LPF (None Seen); MUCUS None Seen strn/LPF (None Seen); SQUAMOUS 4-10 Moderate /LPF (0-3)
[2019-03-19 14:24] LABS: URINE WBC-REFLEX 0-5 Rare /HPF (0-5)
[2019-03-19 14:25] LABS: URINE RBC 3-10 Few /HPF (0-2)
[2019-03-19 14:26] LABS: AMORPHOUS URATES Few /LPF (None Seen); BACTERIA-REFLEX None Seen /HPF (None Seen)
[2019-03-19 16:55] VITALS: BP 114/74
[2019-03-19 18:29] VITALS: BP 126/63
--- NOTE | 2019-03-19 19:06 | NUR ---
03/19 Days: New admit this evening. Patient confused and lethargic. Low grade temp. A-fib uncontrolled, Cardizem gtt initiated. Has a popped blister left shoulder, scrotum excoriated, rash/edcoriation under left thigh. Bath given. Awaiting admission orders from MD.
[2019-03-19 19:40] VITALS: BP 151/67
[2019-03-19 19:54] LABS: BE -5.5 mmol/L (-2 to +3); PCO2 32.6 mmHg (35.0-45.0); PO2 65.3 mmHg (75.0-100.0); pH 7.375 (7.340-7.450)
[2019-03-19 19:55] LABS: CALCIUM 8.2 mg/dL (8.5-10.1); CREATININE 1.1 mg/dL (0.6-1.3); MAGNESIUM 1.8 mg/dL (1.8-2.4); POTASSIUM 4.4 mmol/L (3.5-5.1)
[2019-03-19 20:16] VITALS: BP 151/67
[2019-03-20] VITALS: BP 103/67
--- NOTE | 2019-03-20 03:59 | NUR ---
ASSUMED CARE OF PT AT 1900. PT IS CONFUSED AND VERY LETHARGIC. PT IS CURRENTLY ON A CARDIZEM DRIP AT 10MG/HR. AT ABOUT 2200 PT APPEARED TO BE IN RESPIRATORY DISTRESS. FLUIDS WHERE DISCONTINUED. DR NOTIFIED AND PT WAS STARTED ON BIPAP. DR MITCHELL ORDERED LASIX X1 PRN BUT ASKED NOT TO GIVE IT UNLESS ABSOLUTELY NECESSARY DO TO RHABDO. PT IS IN A FIB ON THE TELEMETRY. PT IS RESTING COMFORTABLY IN BED. RESPIRATIONS ARE EVEN AND NONLABORED. WILL CONTINUE TO MONITOR PT.
[2019-03-20 04:00] VITALS: BP 124/72
[2019-03-20 05:33] LABS: HEMATOCRIT 43.9 % (42.0-52.0); HEMOGLOBIN 14.7 gm/dL (14.0-18.0); MCH 31.1 pg (26.0-34.0); MCHC 33.4 g/dL (28.0-37.0); MCV 93.1 fL (80.0-100.0); MPV 8.7 fl. (7.2-11.1); NUCLEATED RBCS 0 /100WBC; PLATELET COUNT* 153 thou/uL (150-400); RBC 4.72 mil/uL (4.50-6.00); WBC 4.9 thou/uL (4.0-11.0)
[2019-03-20 05:34] LABS: CALCIUM 8.2 mg/dL (8.5-10.1); CREATININE 0.9 mg/dL (0.6-1.3); POTASSIUM 4.6 mmol/L (3.5-5.1)
[2019-03-20 06:38] LABS: ABSOLUTE LYMPHOCYTES 0.5 thou/uL (0.8-5.3); ABSOLUTE NEUTROPHILS 4.3 thou/uL (1.6-8.1); ATYPICAL LYMPHS 1 %
[2019-03-20 06:39] LABS: MICROCYTES 1+; PLATELET ESTIMATE ADEQUATE
[2019-03-20 06:40] LABS: TOXIC GRANULATION Occasional
[2019-03-20 08:11] VITALS: BP 134/77
[2019-03-20 11:30] VITALS: BP 107/62
--- NOTE | 2019-03-20 11:54 | NUR ---
Nutrition: Pt assessed for pressure ulcer on coccyx. H/o DM II, dementia, OBE. RX: solumedrol, insulin, lasix, folic acid, B1, MVI. BG 300s, albumin 3. RD ordered Fady bid to aid in wound healing. Pt is currently NPO, but supplement order should carry over once diet is advanced. Wt is down from last yr - 440# to 378#. GOAL: continued wt loss, tight BG control, good po intake once diet advances. Mild risk. Will follow up 03/24/19.
--- NOTE | 2019-03-20 12:30 | NUR ---
VSS, ASSUMED CARE IN THE AM, ASSESSMENT PERFORMED AND CHARTED, FALL PRECAUTIONS IN PLACE AND CALL LIGHT IN REACH, PT IS AFIB ON THE MONITOR, PACE MAKER, PT IS ON BIPAP AND HAS BEEN MOVED TO 2L NC, PT HAS STEPHENSON IN PLACE AND IS DRAING, PT IS Q-2 TURN AND HIS GOAL IS TO IMPROVE MENTATION, HE IS ALERT TO SELF, WILL FOLLOW WITH PLAN OF CARE.
--- NOTE | 2019-03-20 15:18 | NUR ---
Pt is A&O. Resides at home alone. Granddtr completes IADLs. Pt states that he is able to complete his ADLs. Pt has home o2 at [facility] and a cpap. Pt uses a cane or walker for mobility. Hx of [facility]. Hx of skilled at [facility]. Goal is home at me. Following for disposition.
--- NOTE | 2019-03-20 15:36 | EKG ---
[place] [address] ELECTROCARDIOGRAM REPORT Name: LUCY KEE Room: [address] ADM IN M.R.#: [id number] Admission: 03/19/19 Attend Phys: Warren Francis Discharge: Date of : 40 Report #: [id number] THIS REPORT FOR: //name// [facility] ED Test Date: 2019-03-19 Test Time: 12:37:04 Pat Name: LUCY KEE Department: Room: [facility] Gender: M Audio Installer: Denise GARZA : 1940 Requested By: Tom Garay Order Number: [id number] MD: Myke Baig Measurements Intervals Odd Rate: 129 P: NV: QRS: 100 QRSD: 99 T: -29 QT: 321 QTc: 471 Interpretive Statements Afib/flut and V-paced complexes No further rhythm analysis attempted due to paced rhythm Low voltage, extremity leads Abnormal R-wave progression, late transition Compared to ECG 03/12/2018 16:22:06 Junctional rhythm no longer present Myocardial infarct finding no longer present Electronically Signed On 03-20-2019 15:35:44 CDT by Myke Baig [email or web address] <ELECTRONICALLY SIGNED> By: Myke Baig MD, [facility] 03/20/19 1535 1237 1237 Myke Baig MD, [facility] /EPI
[2019-03-20 16:00] VITALS: BP 149/76
[2019-03-20 19:35] VITALS: BP 145/64
[2019-03-21] VITALS: BP 146/71
--- NOTE | 2019-03-21 03:18 | NUR ---
ASSUMED CARE OF PT AT 1900. PT IS ALERT. VSS. PERRLA. PT REFUSES TURNS. PT EDUCATED ON THE RISKS OF GETTING WOUNDS FROM NOT TURNING. PT STILL CONTINUES TO NOT WANT TO TURN. PT IS IN A FIB ON THE TELEMETRY. PT IS RESTING COMFORTABLY IN BED. RESPIRATIONS ARE EVEN AND NONLABORED. WILL CONTINUE TO MONITOR PT.
[2019-03-21 04:00] VITALS: BP 150/85
[2019-03-21 08:00] VITALS: BP 153/92
--- NOTE | 2019-03-21 10:18 | NUR ---
0530 ASSUMED CARE OF PATIENT. PLEASE SEE DOCUMENTED ASSESSMENT. PT IS ORIENTED X 3. PT HAS BEEN RESISTING TURNS BUT HAS AGREED TO TURN TODAY. DISCUSSED SKIN CARE WITH PATIENT.
[2019-03-21 11:30] VITALS: BP 145/79
[2019-03-21 16:00] VITALS: BP 159/82
--- NOTE | 2019-03-21 18:30 | NUR ---
PATIENT NOT PROGRESSING TOWARDS GOALS. COULD BE DIRECTED THIS MORNING BUT THE DAY HAS GONE ON HAS BECOME RESISTANT TO CARE AND COMBATIVE. PULLED HIS IV OUT AT 1800. ORDER TO LEAVE IV OUT. NOW HAS MONITOR OFF AND WON'T WEAR OXYGEN. KNOWS HE IS AT [facility] AND HE WANTS TO GO HOME.VITAL SIGNS HAVE BEEN STABLE. NO FAMILY HAS VISITED
--- NOTE | 2019-03-21 18:41 | NUR ---
DAUGHTER PRESENT AND PT IS CONTINUING TO SAY HE IS GOING HOME
[2019-03-21 21:17] LABS: CALCIUM 8.6 mg/dL (8.5-10.1); POTASSIUM 4.2 mmol/L (3.5-5.1)
[2019-03-21 23:48] VITALS: BP 137/86
--- NOTE | 2019-03-22 01:25 | NUR ---
ASSUMED CARE OF PT AT 1900. PT IS ALERT AND ORIENTED BUT GETS CONFUSED T/O THE NIGHT. VSS. PERRLA. PT REFUSING SOME TURNS. PT EDUCATED ON RISK OF WOUNDS WHEN NOT TURNING. PT ALSO REFUSING TO HAVE IV. PT IS IN A FIB ON THE TELEMETRY. PT IS RESTING COMFORTABLY IN BED. RESPIRATIONS ARE EVEN AND NONLABORED. WILL CONTINUE TO MONITOR PT.
[2019-03-22 06:28] VITALS: BP 160/86
[2019-03-22 08:10] VITALS: BP 128/74
--- NOTE | 2019-03-22 09:18 | NUR ---
ASSUMED CARE OF PT THIS AM AROUND 07- PATTERN ATTENDANT IN PLACE ORDERED, TRACING A-FIB/RATE CONTROLLED- UPON ASSESSMENT PT NOTED TO BE RESTING IN BED, WATCHING TV- PT A&O X4 WITH FORGETFULLNESS NOTED- CONTINENT VS INCONTINENT OF BOWEL; STEPHENSON IN PLACE D/D CLEAR GREG URINE- A X 1-2 WITH TRANSFERS NOTED- COURSE LUNG SOUNDS NOTED, DYSPNEA NOTED ON EXERTION- VSS, O2 SAT 94% ON RA- ABD FIRM/OBESE/NON-TENDER, BS X4 QUADS- LAST BM REPORTED 03-21-19- NO IV ACCESS NOTED AT THIS TIME R/T PT REFUSAL- SPECIALTY BED MATTRESS IN PLACE WITH Q [address] INDICATED- GOOD PO INTAKE NOTED THIS AM WITH BREAKFAST, BS MONITORED ORDERED WITH SCHEDULED AND SSI PRESCIBED- GREG LE 2+ EDEMA NOTED WITH DRYNESS- EEG ORDERED THIS AM PER NEURO- PT DENIES ANY C/O PAIN/DISCOMFORT AT THIS TIME- CALL LIGHT AND PERSONAL BELONGINGS WITH IN REACH- HOURLY ROUNDS IN PLACE R/T SAFETY/NEEDS- ALL NEEDS MET AT THIS TIME-WCTM
[2019-03-22] MEDS ORDERED: PREDNISONE 10 M10 MG PO (11:13)
--- NOTE | 2019-03-22 13:39 | NUR ---
CHF Discharge Medication Education: Patient was provided a medication handout. Patient did not want to discuss medications at that time. Pharmacy let patient know if has any questions we can come back and talk with him. Thank you.
--- NOTE | 2019-03-22 14:28 | NUR ---
Consult received regarding Pt needing placement. CM discussed with Pt, Pt adamently refused to go to [facility]. CM left for Pt's dtr and granddtr, awaiting call back. Following.
[2019-03-22] MEDS ORDERED: CARDIZEM CD120 MG PO (14:34)
--- NOTE | 2019-03-22 15:33 | 2DMMODE ---
[place] [address] 2 D/M-MODE ECHOCARDIOGRAM Name: CHILANGOLUCY JESUS Room: [address] IN [facility]#: [id number] Admission: 03/19/19 Attend Phys: Harpreet Neal Discharge: Date of : 40 Date of Service: 03/22/19 1533 Report #: [id number] THIS REPORT FOR: //name// APPROVED REPORT Study performed: 03/22/2019 10:23:17 EXAM: Comprehensive 2D, Doppler, and color-flow Echocardiogram Patient Location: In-Patient Room #: 220 Status: routine BSA: 2.93 HR: 69 bpm BP: 128/74 mmHg Rhythm: NSR Other Information Study Quality: Good Indications Congestive Heart Failure Dyspnea 2D Dimensions IVSd: 15.07 (7-11mm) LVOT Diam: 20.70 (18-24mm) LVDd: 56.32 mm PWd: 14.16 (7-11mm) Ascending Ao: 32.95 (22-36mm) LVDs: 32.80 (25-40mm) Aortic Root: 33.33 mm Volumes Left Atrial Volume (Systole) LA ESV Index: 32.80 mL/m2 Aortic Valve AoV Peak Lasha.: 3.09 m/s AO Peak Gr.: 38.25 mmHg LVOT Max P.32 mmHg AO Mean Gr.: 22.99 mmHg LVOT Mean P.07 mmHg LVOT Max V: 1.04 m/s AO V2 VTI: 63.50 cm LVOT Mean V: 0.66 m/s CRISSY (VTI): 1.14 cm2 LVOT V1 VTI: 21.59 cm Mitral Valve E/A Ratio: 2.52 MV Decel. Time: 153.32 [place] [address] 2 D/M-MODE ECHOCARDIOGRAM Name: LUCY KEE Room: [address] IN M.R.#: [id number] Admission: 03/19/19 Attend Phys: Harpreet Neal Discharge: Date of : 40 Date of Service: 03/22/19 1533 Report #: [id number] MV E Max Lasha.: 1.49 m/s MV PHT: 44.46 ms MVA (PHT): 4.95 cm2 TDI E/Lateral E': 13.55 E/Medial E': 14.90 Medial E' Lasha.: 0.10 m/s Lateral E' Lasha.: 0.11 m/s Pulmonary Valve PV Peak Lasha.: 1.01 m/s PV Peak Gr.: 4.12 mmHg Tricuspid Valve RAP Estimate: 10.00 mmHg TR Peak Gr.: 28.92 mmHg RVSP: 38.00 mmHg PA Pressure: 38.00 mmHg Left Ventricle The left ventricle is normal size. There is normal LV segmental wall motion. Mild concentric left ventricular hypertrophy. Left ventricular systolic function is borderline. LVEF is 50-55%. Right Ventricle The right ventricle is normal size. The right ventricular systolic function is normal. Pacemaker lead is present in the right ventricle. Atria The left atrium size is normal. The right atrium size is normal. Aortic Valve Moderate aortic valve sclerosis. Trace aortic regurgitation. Moderate aortic stenosis. Mitral Valve The mitral valve is normal in structure. Mild mitral regurgitation. No evidence of mitral valve stenosis. Tricuspid Valve The tricuspid valve is normal in structure. Trace tricuspid regurgitation. Mild pulmonary hypertension. Pulmonic Valve The pulmonary valve is normal in structure. There is no pulmonic [place]vular [place] [address] 2 D/M-MODE ECHOCARDIOGRAM Name: LUCY KEE Room: [address]#: [id number] Admission: 03/19/19 Attend Phys: Harpreet Neal Discharge: Date of : 40 Date of Service: 03/22/19 1533 Report #: [id number] Great Vessels The aortic root is normal in size. IVC is dilated and collapses >50% with inspiration. Pericardium There is no pericardial effusion. <Conclusion> The left ventricle is normal size. Mild concentric left ventricular hypertrophy. Left ventricular systolic function is borderline. LVEF is 50-55%. The right ventricle is normal size. The left atrium size is normal. Moderate aortic valve sclerosis. Trace aortic regurgitation. Moderate aortic stenosis. The mitral valve is normal in structure. Mild mitral regurgitation. The tricuspid valve is normal in structure. IVC is dilated and collapses >50% with inspiration. There is no pericardial effusion. There is normal LV segmental wall motion. Pacemaker lead is present in the right ventricle. <ELECTRONICALLY SIGNED> By: Myke Baig MD, FACC 03/22/19 1533 1533 1533 Myke Baig MD, FACC /INF
--- NOTE | 2019-03-22 15:54 | NUR ---
Pt has dc orders to go home with HH, pending neuro and cards signing off. [facility] is able to accept, faxed dc orders to [facility].
[2019-03-22 16:00] VITALS: BP 164/84
--- NOTE | 2019-03-22 16:38 | NUR ---
PT CURRENTLY UP IN BED SIDE RECLINER- ABSTRACT CLERK IN PLACE ORDERED, TRACING A-FIB- RATE CONTROLLED- D/C ORDERS WRITTEN PER THIS SHIFT IF OKAY WITH CARDIOLOGY AND NEURO- CARDIO SIGNS OFF THIS SHIFT- EEG COMPLETED PER SHYLA, WILL CALL WITH RESULTS AND IF OKAY TO [id number] D/C'D WITH ORAL PREDNISONE ORDERED AND GIVEN THIS SHIFT- PT REFUSSING TO WORK WITH THERAPIES THIS SHIFT- DECLINED REHAB/SKILLED CONSULTS- HH SET UP PER CM THIS SHIFT IN CASE OF D/C- ECHO NOTED AT 50-55%- BS MONITORING IN PLACE WITH INSULIN PRESCIBED- PT MAKES NEEDS KNOWN- ALL NEEDS MET AT THIS TIME-WCTM
--- NOTE | 2019-03-23 12:59 | NUR ---
PT DISCHARGED FROM HOSPITAL BEFORE P.T. EVAL COULD BE COMPLETED.
== END 2019-03-22 18:51 | disposition home health service (06) | DRG 557 ==
LOC: M.ERS 12:30 → M.TBA-ER 13:59 → M.2W 13:59
PROVIDERS: Emergency Medicine Emergency Medical Services; Registered Nurse; ADMIT Internal Medicine
DX: M62.82 Rhabdomyolysis (principal); G93.41 Metabolic encephalopathy; I50.33 Acute on chronic diastolic (congestive) heart failure; E87.2 Acidosis; Z68.41 Body mass index [BMI] 40.0-44.9, adult; R32 Unspecified urinary incontinence; I11.0 Hypertensive heart disease with heart failure; G47.33 Obstructive sleep apnea (adult) (pediatric); I48.2 Chronic atrial fibrillation; E66.01 Morbid (severe) obesity due to excess calories; E11.9 Type 2 diabetes mellitus without complications; F03.90 Unspecified dementia, unspecified severity, without behavioral disturbance, psychotic disturbance, mood disturbance, and anxiety; E78.5 Hyperlipidemia, unspecified; G62.9 Polyneuropathy, unspecified; Z79.84 Long term (current) use of oral hypoglycemic drugs; Z95.0 Presence of cardiac pacemaker